=== PATIENT | male | born 1950 | race Hispanic/Latino ===

== ENCOUNTER → 2019-10-20 | Outpatient (CLI) | payer OTHER ==
[~2019-10-20] VITALS: Ht 162.6 cm; Wt 70.9 kg
[~2019-10-20] MED LIST: ATOR-2 PO; CARB15DR OP; CLOP75TA14 PO; FOLI1TAB61 PO; LISI40TA4 PO; METO25TA6 PO; NITR0.4T50 SL; ROPI1TAB13 PO; SEVE800T7 PO
[2019-10-20 09:55] VITALS: BP 168/69
[2019-10-20 10:03] LABS: BASOPHILS % (AUTO) 0.6 % (0.0-5.0); EOSINOPHILS % (AUTO) 5.5 % (0.0-8.0); HEMATOCRIT 32.6 % (42-54); LYMPHOCYTES % (AUTO) 22.4 % (21.0-51.0); MEAN CORPUSCULAR HEMOGLOBIN 29.1 pg (27.0-33.0); MEAN CORPUSCULAR HGB CONC 32.2 g/dL (32.0-36.0); MEAN CORPUSCULAR VOLUME 90.3 fL (79-99); MONOCYTES % (AUTO) 7.2 % (3.0-13.0); PLATELET COUNT (AUTO) 189 K/uL (130-400); RED BLOOD CELL COUNT(AUTO) 3.61 MIL/uL (4.50-6.20); RED CELL DISTRIBUTION WIDTH 13.2 % (11.0-15.5); WHITE BLOOD COUNT (AUTO) 8.7 K/uL (4.8-10.8)
[2019-10-20 10:06] LABS: APPEARANCE,URINE Clear (CLEAR); BILIRUBIN,URINE Negative (NEGATIVE); COLOR,URINE Yellow (YELLOW); GLUCOSE, URINE (UA) TRACE mg/dL (NEGATIVE); KETONES,URINE Negative (NEGATIVE); LEUKOCYTE ESTERASE ,URINE Negative (NEGATIVE); NITRATE,URINE Negative (NEGATIVE); OCCULT BLOOD,URINE Small (NEGATIVE); PH,URINE 7.5 (5.0-8.0); PROTEIN,URINE 300 mg/dL (NEGATIVE); UROBILINOGEN,URINE 0.2 mg/dL (0.2-1.0)
[2019-10-20 10:09] LABS: BACTERIA,URINE Rare /HPF (None Seen); RBC,URINE 0-1 /HPF (0-1); SQUAMOUS EPITHELIAL CELL,UR Rare /HPF (0-2); WBC,URINE 0-1 /HPF (0-1)
[2019-10-20 10:16] LABS: INR 0.99 (0.85-1.15); PARTIAL THROMBOPLASTIN TIME 28.7 SEC (26.3-35.5); PROTHROMBIN TIME 10.7 SEC (9.6-11.6)
[2019-10-20 10:36] LABS: POTASSIUM 6.4 mmol/L (3.5-5.1)
[2019-10-20 10:37] LABS: CREATININE 9.4 mg/dL (0.5-1.5)
--- NOTE | 2019-10-24 08:30 | NUR ---
lab abnormals called dr carr office and spoke to daniele. gwen gee was informed of abnormals labs cbc and bmp pt had dialysis done on the . pt was cancelled as per gwen gee.
== END | disposition home or self-care (01) ==
LOC: DAH 10:00 → EDSTATUS 10-25 09:00
PROVIDERS: ATTEND Internal Medicine Cardiovascular Disease
DX: Z01.818 Encounter for other preprocedural examination (principal); I73.9 Peripheral vascular disease, unspecified; Z79.899 Other long term (current) drug therapy; Z87.891 Personal history of nicotine dependence
CPT/HCPCS: 36415; 71045; 80048; 81001; 85025; 85610; 85730; 93005

== ENCOUNTER 2020-04-12 07:36 | Day surgery (SDC) | payer OTHER ==
[2020-04-10 09:22] LABS: BASOPHILS % (AUTO) 0.8 % (0.0-5.0); HEMATOCRIT 34.5 % (42-54); LYMPHOCYTES % (AUTO) 25.1 % (21.0-51.0); MEAN CORPUSCULAR HEMOGLOBIN 29.9 pg (27.0-33.0); MEAN CORPUSCULAR HGB CONC 31.9 g/dL (32.0-36.0); MEAN CORPUSCULAR VOLUME 93.8 fL (79-99); MONOCYTES % (AUTO) 6.9 % (3.0-13.0); NEUTROPHILS % (AUTO) 59.9 % (40.0-77.0); PLATELET COUNT (AUTO) 179 K/uL (130-400); RED BLOOD CELL COUNT(AUTO) 3.68 MIL/uL (4.50-6.20); RED CELL DISTRIBUTION WIDTH 14.5 % (11.0-15.5); WHITE BLOOD COUNT (AUTO) 6.3 K/uL (4.8-10.8)
[2020-04-10 09:25] LABS: APPEARANCE,URINE Clear (CLEAR); BILIRUBIN,URINE Negative (NEGATIVE); COLOR,URINE Yellow (YELLOW); GLUCOSE, URINE (UA) TRACE mg/dL (NEGATIVE); KETONES,URINE Negative (NEGATIVE); LEUKOCYTE ESTERASE ,URINE Negative (NEGATIVE); NITRATE,URINE Negative (NEGATIVE); OCCULT BLOOD,URINE Negative (NEGATIVE); PROTEIN,URINE 300 mg/dL (NEGATIVE); UROBILINOGEN,URINE 0.2 mg/dL (0.2-1.0)
[2020-04-10 09:36] LABS: BACTERIA,URINE Rare /HPF (None Seen); RBC,URINE 0-1 /HPF (0-1); SQUAMOUS EPITHELIAL CELL,UR Rare /HPF (0-2); WBC,URINE 0-1 /HPF (0-1)
[2020-04-10 09:44] LABS: INR 1.04 (0.85-1.15); PARTIAL THROMBOPLASTIN TIME 29.8 SEC (26.3-35.5); PROTHROMBIN TIME 11.2 SEC (9.6-11.6)
[2020-04-10 09:56] LABS: CREATININE 6.1 mg/dL (0.5-1.5); POTASSIUM 5.2 mmol/L (3.5-5.1)
--- NOTE | 2020-04-11 15:23 | NUR ---
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
[2020-04-12] VITALS (12 sets, daily range): BP systolic 16–179; BP diastolic 60–76
[~2020-04-12] VITALS: Ht 162.6 cm; Wt 70.0 kg
[~2020-04-12 07:36] MED LIST changes: -CARB15DR OP; +SODIUM CHLORIDE 0.9% 500ML 500 ML IV SCH
[2020-04-12] MEDS ORDERED: SODIUM CHLORIDE 0.9% 1000ML 1,000 ML IV ONE (08:28)
[2020-04-12 08:53] LABS: CREATININE 5.1 mg/dL (0.5-1.5); POTASSIUM 4.7 mmol/L (3.5-5.1)
[2020-04-12] MEDS ORDERED: NITROGLYCERIN 2 MG/VIAL VIAL IV ONE (10:41)
[2020-04-12] MEDS ORDERED: HEPARIN SODIUM 1000UNIT/ML 10ML VIAL ONE (10:41)
[2020-04-12] MEDS ORDERED: SODIUM BICARB 50MEQ 50ML VIAL ONE (10:41)
[2020-04-12] MEDS ORDERED: IODIXANOL 320 MG/ML 100 ML VIAL ONE ×2 (10:42→12:04)
[2020-04-12] MEDS ORDERED: FENTANYL CITRATE PF 50 MCG/1 ML 2ML VIAL ONE (10:42)
[2020-04-12] MEDS ORDERED: LIDOCAINE HCL 2% 20ML ONE (10:42)
[2020-04-12] MEDS ORDERED: MIDAZOLAM HCL 1 MG/ML 2ML VIAL ONE (10:42)
--- NOTE | 2020-04-12 18:14 | NUR ---
PT AAOX3, NO ACTIVE BLEEDING OR HEMATOMA TO LT GROIN. DRESSING IS D/I. PT STABLE NO DISTRESS OR C/O PAIN TO LT GROIN. PT INSTRUCTIONS GIVEN TO , VERBALIZED UNDERSTANDING. STATES SON WILL BE PICKING UP PT. PERSONAL BELONGINGS WITH PT.PT DRESSED WITH ASSISTANCE. TAKEN OUT TO CAR VIA WHEELCHAIR, DRIVEN HOME BY SON.
== END 2020-04-12 18:17 | disposition home or self-care (01) ==
LOC: DAH 07:36
PROVIDERS: ATTEND Internal Medicine Cardiovascular Disease
DX: E11.51 Type 2 diabetes mellitus with diabetic peripheral angiopathy without gangrene (principal); I70.203 Unspecified atherosclerosis of native arteries of extremities, bilateral legs; E78.5 Hyperlipidemia, unspecified; E11.9 Type 2 diabetes mellitus without complications; I12.0 Hypertensive chronic kidney disease with stage 5 chronic kidney disease or end stage renal disease; E11.22 Type 2 diabetes mellitus with diabetic chronic kidney disease; N18.6 End stage renal disease; Z79.899 Other long term (current) drug therapy; Z79.01 Long term (current) use of anticoagulants
CPT/HCPCS: 36246; 36415 ×2; 71045; 75630; 80048 ×2; 81001; 82948 ×2; 85025; 85610; 85730; 93005; A4215; A4216; A4221; A4222; A4223 ×3; A4606; A4663; C1760; C1769; C1894 ×2; J1644 ×2; J2250; J3010; J3490 ×3; J7030; Q9967 ×2; 36247; 99156; 99157

== ENCOUNTER → 2021-01-31 | Outpatient (CLI) | payer OTHER ==
[~2021-01-31] MED LIST changes: +IOHEXOL 350 MG/ML 100ML INFUS..BTL IV ONE; +IOHEXOL-350 50ML VIAL IV ONE; -LISI40TA4 PO; +LISI40TA9 PO; -SODIUM CHLORIDE 0.9% 500ML 500 ML IV SCH
== END | disposition home or self-care (01) ==
LOC: RAH 09:07
PROVIDERS: ATTEND Internal Medicine Cardiovascular Disease
DX: N28.1 Cyst of kidney, acquired (principal); N26.1 Atrophy of kidney (terminal); N28.89 Other specified disorders of kidney and ureter; K76.0 Fatty (change of) liver, not elsewhere classified; K57.90 Diverticulosis of intestine, part unspecified, without perforation or abscess without bleeding; I70.291 Other atherosclerosis of native arteries of extremities, right leg; I70.292 Other atherosclerosis of native arteries of extremities, left leg
CPT/HCPCS: 75635; Q9967 ×2

== ENCOUNTER 2021-11-28 16:34 | Inpatient (IN) | payer OTHER ==
[~2021-11-28] VITALS: Ht 160 cm; Wt 78.7 kg
[~2021-11-28 16:34] MED LIST changes: -IOHEXOL 350 MG/ML 100ML INFUS..BTL IV ONE; -IOHEXOL-350 50ML VIAL IV ONE
[2021-11-28 17:06] LABS: BASOPHILS % (AUTO) 0.6 % (0.0-5.0); EOSINOPHILS % (AUTO) 4.6 % (0.0-8.0); HEMATOCRIT 39.9 % (42-54); LYMPHOCYTES % (AUTO) 23.4 % (21.0-51.0); MEAN CORPUSCULAR HEMOGLOBIN 28.9 pg (27.0-33.0); MEAN CORPUSCULAR HGB CONC 31.8 g/dL (32.0-36.0); MEAN CORPUSCULAR VOLUME 90.9 fL (79-99); MONOCYTES % (AUTO) 9.9 % (3.0-13.0); NEUTROPHILS % (AUTO) 61.1 % (40.0-77.0); PLATELET COUNT (AUTO) 177 K/uL (130-400); RED BLOOD CELL COUNT(AUTO) 4.39 MIL/uL (4.50-6.20); RED CELL DISTRIBUTION WIDTH 14.8 % (11.0-15.5); WHITE BLOOD COUNT (AUTO) 7.2 K/uL (4.8-10.8)
[2021-11-28 17:17] LABS: CREATININE 6.8 mg/dL (0.5-1.5); POTASSIUM 5.2 mmol/L (3.5-5.1)
[2021-11-28 17:20] LABS: INR 1.12 (0.85-1.15); PROTHROMBIN TIME 12.1 SEC (9.6-11.6)
[2021-11-28 17:22] LABS: ALBUMIN 3.8 g/dL (3.5-5.0); BILIRUBIN,TOTAL 0.4 mg/dL (0.2-1.0); TOTAL PROTEIN, SERUM 8.1 g/dL (6.0-8.3)
[2021-11-28] MEDS ORDERED: IOHEXOL 350 MG/ML 100ML INFUS..BTL IV ONE ×2 (18:20→18:42)
[2021-11-28] MEDS ORDERED: IOHEXOL-350 50ML VIAL IV ONE ×2 (18:38→18:42)
[2021-11-28] MEDS ORDERED: ONDANSETRON 4MG INJ IV PRN (22:30)
[2021-11-28] MEDS ORDERED: ACETAMINOPHEN 325 MG TAB PO PRN ×2 (22:30)
[2021-11-28] MEDS ORDERED: MORPHINE 2 MG SYG IV PRN (22:30)
[2021-11-28 23:03] LABS: INR 1.08 (0.85-1.15); PROTHROMBIN TIME 11.7 SEC (9.6-11.6)
[2021-11-28] MEDS ORDERED: CLOP75TA32 PO (23:08)
[2021-11-28] MEDS ORDERED: LOSA100T58 PO (23:08)
[2021-11-28] MEDS ORDERED: ATOR-2 PO (23:08)
[2021-11-28] MEDS ORDERED: CARV12.511 PO (23:08)
[2021-11-28] MEDS ORDERED: FOLI1TAB61 PO (23:08)
[2021-11-28] MEDS ORDERED: DOCU100T PO (23:08)
[2021-11-28] MEDS ORDERED: HYDR-4153 PO (23:08)
[2021-11-28] MEDS ORDERED: ROPI1TAB13 PO (23:08)
[2021-11-28] MEDS ORDERED: [UNRECOGNIZED DRUG - OTHER] PO (23:08)
[2021-11-28] MEDS ORDERED: AMLO2.5T4 PO (23:08)
[2021-11-29] VITALS (20 sets, daily range): BP systolic 96–197; BP diastolic 61–100
[2021-11-29] MEDS ORDERED: LABETALOL 20MG SYG IV ONE (00:40)
[2021-11-29] MEDS: LABETALOL 20MG VIAL IV PRN ×2 (00:48→05:44)
[2021-11-29 05:20] LABS: BASOPHILS % (AUTO) 0.7 % (0.0-5.0); EOSINOPHILS % (AUTO) 4.2 % (0.0-8.0); HEMATOCRIT 38.5 % (42-54); LYMPHOCYTES % (AUTO) 19.1 % (21.0-51.0); MEAN CORPUSCULAR HEMOGLOBIN 29.4 pg (27.0-33.0); MEAN CORPUSCULAR HGB CONC 32.5 g/dL (32.0-36.0); MEAN CORPUSCULAR VOLUME 90.6 fL (79-99); MONOCYTES % (AUTO) 8.3 % (3.0-13.0); NEUTROPHILS % (AUTO) 67.5 % (40.0-77.0); PLATELET COUNT (AUTO) 187 K/uL (130-400); RED BLOOD CELL COUNT(AUTO) 4.25 MIL/uL (4.50-6.20); WHITE BLOOD COUNT (AUTO) 8.7 K/uL (4.8-10.8)
[2021-11-29 05:36] LABS: ALBUMIN 3.5 g/dL (3.5-5.0); BILIRUBIN,TOTAL 0.4 mg/dL (0.2-1.0); CREATININE 7.4 mg/dL (0.5-1.5); POTASSIUM 5.4 mmol/L (3.5-5.1); TOTAL PROTEIN, SERUM 7.5 g/dL (6.0-8.3)
[2021-11-29 06:43] LABS: ERYTHROCYTE SEDIMENTATION RATE 35 MM/HR (0-20)
[2021-11-29] MEDS ORDERED: FAMOTIDINE 20MG VIAL IV SCH (09:00)
[2021-11-29] MEDS ORDERED: METOPROLOL TARTRATE 25 MG TAB PO SCH (09:00)
[2021-11-29] MEDS ORDERED: HYDRALAZINE 25MG TABLET PO SCH (14:00)
[2021-11-29] MEDS ORDERED: ATORVASTATIN 40 MG TABLET PO SCH (21:00)
[2021-11-29] MEDS ORDERED: AMLODIPINE 2.5 MG TAB PO SCH (21:00)
[2021-11-30 02:05] LABS: HEPATITIS B SURFACE ANTIGEN Non-Reactive (Negative)
[2021-11-30] MEDS ORDERED: LOSARTAN 100 MG TABLET PO SCH (09:00)
[2021-11-30] MEDS ORDERED: Vitamin B Complex/Vit C/Folic Acid PO SCH (09:00)
== END 2021-11-29 20:30 | disposition home or self-care (01) | DRG 299 ==
LOC: EDH 16:34 → EDHIP 22:16 → 3DH 11-29 03:53
PROVIDERS: ADMIT Hospitalist; ATTEND Hospitalist
PROC: 5A1D70Z Performance of Urinary Filtration, Intermittent, Less than 6 Hours Per Day (ICD-10-PCS; principal; 2021-11-29)
DX: E11.51 Type 2 diabetes mellitus with diabetic peripheral angiopathy without gangrene (principal); N18.6 End stage renal disease; I12.0 Hypertensive chronic kidney disease with stage 5 chronic kidney disease or end stage renal disease; L97.419 Non-pressure chronic ulcer of right heel and midfoot with unspecified severity; I70.218 Atherosclerosis of native arteries of extremities with intermittent claudication, other extremity; E78.00 Pure hypercholesterolemia, unspecified; E11.22 Type 2 diabetes mellitus with diabetic chronic kidney disease; Z99.2 Dependence on renal dialysis; I25.10 Atherosclerotic heart disease of native coronary artery without angina pectoris; E87.5 Hyperkalemia; E11.621 Type 2 diabetes mellitus with foot ulcer
CPT/HCPCS: 36415; 75635; 80053; 82948; 85025; 85610; 85651; 85730; 86704; 86706; 87340; 90935; G0378; J3490; Q9967

== ENCOUNTER 2022-01-21 09:02 | Inpatient (IN) | payer OTHER ==
[2022-01-20 17:33] VITALS: BP 168/65
[2022-01-20 17:39] LABS: BASOPHILS % (AUTO) 0.5 % (0.0-5.0); EOSINOPHILS % (AUTO) 2.2 % (0.0-8.0); HEMATOCRIT 40.1 % (42-54); LYMPHOCYTES % (AUTO) 13.9 % (21.0-51.0); MEAN CORPUSCULAR HEMOGLOBIN 29.8 pg (27.0-33.0); MEAN CORPUSCULAR HGB CONC 33.2 g/dL (32.0-36.0); MEAN CORPUSCULAR VOLUME 89.7 fL (79-99); MONOCYTES % (AUTO) 7.9 % (3.0-13.0); NEUTROPHILS % (AUTO) 75.2 % (40.0-77.0); PLATELET COUNT (AUTO) 183 K/uL (130-400); RED BLOOD CELL COUNT(AUTO) 4.47 MIL/uL (4.50-6.20); RED CELL DISTRIBUTION WIDTH 13.8 % (11.0-15.5); WHITE BLOOD COUNT (AUTO) 7.8 K/uL (4.8-10.8)
[2022-01-20 17:40] LABS: APPEARANCE,URINE CLEAR (CLEAR); BILIRUBIN,URINE NEGATIVE (NEGATIVE); COLOR,URINE YELLOW (YELLOW); GLUCOSE, URINE (UA) 250 mg/dL (NEGATIVE); KETONES,URINE NEGATIVE (NEGATIVE); LEUKOCYTE ESTERASE ,URINE NEGATIVE (NEGATIVE); NITRATE,URINE NEGATIVE (NEGATIVE); OCCULT BLOOD,URINE MODERATE (NEGATIVE); PROTEIN,URINE >=300 mg/dL (NEGATIVE); UROBILINOGEN,URINE 0.2 mg/dL (0.2-1.0)
[2022-01-20 17:46] LABS: CREATININE 5.4 mg/dL (0.5-1.5); POTASSIUM 5.1 mmol/L (3.5-5.1)
[2022-01-20 17:49] LABS: INR 0.99 (0.85-1.15); PROTHROMBIN TIME 10.8 SEC (9.6-11.6)
[2022-01-20 17:50] LABS: PARTIAL THROMBOPLASTIN TIME 29.6 SEC (26.3-35.5)
[2022-01-20 18:00] LABS: RBC,URINE 0-1 /HPF (0-1); WBC,URINE 0-1 /HPF (0-1)
[2022-01-20 18:01] LABS: BACTERIA,URINE Few /HPF (None Seen); SQUAMOUS EPITHELIAL CELL,UR Rare /HPF (0-2)
[2022-01-21] VITALS (22 sets, daily range): BP systolic 134–170; BP diastolic 66–86
[~2022-01-21] VITALS: Ht 162.6 cm; Wt 75.7 kg
[~2022-01-21 09:02] MED LIST changes: +AMLO2.5T4 PO; +CARV12.511 PO; -CLOP75TA14 PO; +CLOP75TA32 PO; +DOCU100T PO; +HYDR-4153 PO; -LISI40TA9 PO; +LOSA100T58 PO; -METO25TA6 PO; -SEVE800T7 PO; +[UNRECOGNIZED DRUG - OTHER] PO
[2022-01-21] MEDS ORDERED: 0.9%NACL 1000ML 1,000 ML IV ONE (09:21)
[2022-01-21] MEDS ORDERED: CEFAZOLIN SODIUM 1 GM VIAL ONE (12:41)
[2022-01-21] MEDS ORDERED: GLYCOPYRROLATE 1 MG/5 ML SYRINGE ONE (15:57)
[2022-01-21] MEDS ORDERED: SUCCINYLCHOLINE CHLORIDE 20 MG/ML 10 ML VIAL ONE (15:57)
[2022-01-21] MEDS ORDERED: MIDAZOLAM HCL 1 MG/ML 2ML VIAL ONE (15:57)
[2022-01-21] MEDS ORDERED: PROPOFOL 10 MG/ML 20ML VIAL IV ONE (15:57)
[2022-01-21] MEDS ORDERED: ONDANSETRON 4MG INJ ONE (15:57)
[2022-01-21] MEDS ORDERED: ROCURONIUM 10MG/1ML SYR 10 MG/ML ML ONE (15:57)
[2022-01-21] MEDS ORDERED: FENTANYL CITRATE PF 50 MCG/1 ML 2ML VIAL ONE (15:58)
[2022-01-21] MEDS ORDERED: KETAMINE 50MG/ML SYRINGE 50 MG/ML DISP.SYRIN IV ONE (16:13)
[2022-01-21] MEDS ORDERED: NOREPINEPHRINE BITARTRATE 1 MG/1 ML ML IV ONE ×2 (16:13→17:22)
[2022-01-21] MEDS ORDERED: PHENYLEPHRINE HCL 10 MG/ML 1ML VIAL IV ONE (17:22)
[2022-01-21] MEDS ORDERED: HEPARIN 10,000 UNIT/10ML (1,000 UNIT/ML) VIAL ONE (17:22)
[2022-01-21] MEDS ORDERED: MEPERIDINE-PF 25 MG/ML SYG ONE (19:25)
[2022-01-21] MEDS ORDERED: TRAMADOL HCL 50 MG TABLET PO PRN ×2 (20:00)
[2022-01-21] MEDS ORDERED: ONDANSETRON 4MG INJ IVP PRN (20:00)
[2022-01-21] MEDS: PHARMACY COMMUNICATION MISC SCH ×4 (20:30→23:30)
[2022-01-21] MEDS ORDERED: NON-FORMULARY MEDICATION 1 EACH (Docusate Sodium 100 MG) PO SCH (21:00)
[2022-01-21] MEDS: [UNRECOGNIZED DRUG - OTHER] PO SCH (21:00)
[2022-01-21] MEDS ORDERED: NON-FORMULARY MEDICATION 1 EACH (Atorvastatin Calcium 80 MG) PO SCH (21:00)
[2022-01-21] MEDS: ROPINIROLE HCL 1 MG TABLET PO SCH (21:42)
[2022-01-21] MEDS: HYDRALAZINE 25MG TABLET PO SCH (21:43)
[2022-01-21] MEDS: DOCUSATE SODIUM 100 MG CAP PO SCH (21:43)
[2022-01-21] MEDS: ATORVASTATIN 40 MG TABLET PO SCH (21:43)
[2022-01-21] MEDS: CARVEDILOL 12.5 MG TABLET PO SCH (21:44)
[2022-01-21] MEDS: AMLODIPINE 2.5 MG TAB PO SCH (21:46)
[2022-01-22] VITALS (21 sets, daily range): BP systolic 89–145; BP diastolic 54–88
[2022-01-22] MEDS ORDERED: CEFAZOLIN SODIUM 1 GM VIAL IVP SCH (01:00)
[2022-01-22] MEDS: CEFAZOLIN SODIUM 1 GM VIAL IVP SCH ×2 (01:00→09:00)
[2022-01-22] MEDS: INSULIN HUMULIN R 100 UNIT/ML 3ML SQ SCH ×4 (07:43→23:13)
[2022-01-22] MEDS: HYDRALAZINE 25MG TABLET PO SCH ×3 (09:00→21:00)
[2022-01-22] MEDS: AMLODIPINE 2.5 MG TAB PO SCH ×2 (09:00→21:21)
[2022-01-22] MEDS: LOSARTAN 100 MG TABLET PO SCH (09:00)
[2022-01-22] MEDS: CARVEDILOL 12.5 MG TABLET PO SCH ×2 (09:00→21:21)
[2022-01-22] MEDS ORDERED: NON-FORMULARY MEDICATION 1 EACH (Vit B Cmplx 3/FA/Vit C/Biotin (Nephro-Vite Rx Tablet) 1 E PO SCH (09:00)
[2022-01-22] MEDS: DOCUSATE SODIUM 100 MG CAP PO SCH ×2 (09:37→21:20)
[2022-01-22] MEDS: Vitamin B Complex/Vit C/Folic Acid PO SCH (09:37)
[2022-01-22] MEDS: ROPINIROLE HCL 1 MG TABLET PO SCH ×2 (09:38→21:20)
[2022-01-22] MEDS: CLOPIDOGREL 75MG TAB PO SCH (09:38)
[2022-01-22] MEDS: [UNRECOGNIZED DRUG - OTHER] PO SCH ×3 (09:49→21:23)
[2022-01-22 10:07] LABS: HEMATOCRIT 33.8 % (42-54); MEAN CORPUSCULAR HEMOGLOBIN 29.7 pg (27.0-33.0); MEAN CORPUSCULAR HGB CONC 32.8 g/dL (32.0-36.0); MEAN CORPUSCULAR VOLUME 90.4 fL (79-99); RED BLOOD CELL COUNT(AUTO) 3.74 MIL/uL (4.50-6.20); RED CELL DISTRIBUTION WIDTH 14.1 % (11.0-15.5)
[2022-01-22 10:46] LABS: ALBUMIN 3.4 g/dL (3.5-5.0); BILIRUBIN,TOTAL 0.2 mg/dL (0.2-1.0); MAGNESIUM 2.3 mg/dL (1.80-2.40); PHOSPHORUS 8.1 mg/dL (2.5-4.9); TOTAL PROTEIN, SERUM 7.5 g/dL (6.0-8.3)
[2022-01-22 10:50] LABS: POTASSIUM 6.6 mmol/L (3.5-5.1)
[2022-01-22] MEDS: SEVELAMER HCL 800 MG TABLET PO SCH ×2 (11:50→16:18)
[2022-01-22] MEDS: ATORVASTATIN 40 MG TABLET PO SCH (21:21)
[2022-01-22] MEDS: ACETAMINOPHEN 325 MG TAB PO PRN (23:18)
[2022-01-23] VITALS (7 sets, daily range): BP systolic 112–156; BP diastolic 57–68
[2022-01-23] MEDS: INSULIN HUMULIN R 100 UNIT/ML 3ML SQ SCH ×4 (05:58→20:49)
[2022-01-23] MEDS: LOSARTAN 100 MG TABLET PO SCH (10:09)
[2022-01-23] MEDS: ROPINIROLE HCL 1 MG TABLET PO SCH ×2 (10:09→20:42)
[2022-01-23] MEDS: SEVELAMER HCL 800 MG TABLET PO SCH ×3 (10:09→18:00)
[2022-01-23] MEDS: AMLODIPINE 2.5 MG TAB PO SCH ×2 (10:09→20:43)
[2022-01-23] MEDS: DOCUSATE SODIUM 100 MG CAP PO SCH ×2 (10:09→20:42)
[2022-01-23] MEDS: Vitamin B Complex/Vit C/Folic Acid PO SCH (10:09)
[2022-01-23] MEDS: HYDRALAZINE 25MG TABLET PO SCH ×3 (10:10→20:42)
[2022-01-23] MEDS: CLOPIDOGREL 75MG TAB PO SCH (10:10)
[2022-01-23] MEDS: CARVEDILOL 12.5 MG TABLET PO SCH ×2 (10:11→20:42)
[2022-01-23] MEDS: [UNRECOGNIZED DRUG - OTHER] PO SCH ×3 (10:17→21:00)
[2022-01-23] MEDS: ACETAMINOPHEN 325 MG TAB PO PRN (10:20)
[2022-01-23] MEDS: ATORVASTATIN 40 MG TABLET PO SCH (20:42)
[2022-01-24] VITALS (21 sets, daily range): BP systolic 94–170; BP diastolic 63–79
[2022-01-24] MEDS: INSULIN HUMULIN R 100 UNIT/ML 3ML SQ SCH ×4 (06:52→21:00)
[2022-01-24] MEDS: Vitamin B Complex/Vit C/Folic Acid PO SCH (09:16)
[2022-01-24] MEDS: SEVELAMER HCL 800 MG TABLET PO SCH ×3 (09:16→16:41)
[2022-01-24] MEDS: ROPINIROLE HCL 1 MG TABLET PO SCH ×2 (09:17→21:00)
[2022-01-24] MEDS: LOSARTAN 100 MG TABLET PO SCH (09:17)
[2022-01-24] MEDS: CLOPIDOGREL 75MG TAB PO SCH (09:18)
[2022-01-24] MEDS: DOCUSATE SODIUM 100 MG CAP PO SCH ×2 (09:18→21:00)
[2022-01-24] MEDS: [UNRECOGNIZED DRUG - OTHER] PO SCH ×3 (09:20→21:00)
[2022-01-24] MEDS: HYDRALAZINE 25MG TABLET PO SCH ×3 (09:24→22:00)
[2022-01-24] MEDS: AMLODIPINE 2.5 MG TAB PO SCH ×2 (09:24→21:00)
[2022-01-24] MEDS: CARVEDILOL 12.5 MG TABLET PO SCH ×2 (09:25→21:00)
[2022-01-24] MEDS: ATORVASTATIN 40 MG TABLET PO SCH (21:00)
== END 2022-01-24 23:27 | disposition home or self-care (01) | DRG 270 ==
LOC: DAHIP 09:02 → 2DH 20:57
PROVIDERS: ADMIT Thoracic Surgery (Cardiothoracic Vascular Surgery); ATTEND Thoracic Surgery (Cardiothoracic Vascular Surgery)
PROC: 03HY32Z Insertion of Monitoring Device into Upper Artery, Percutaneous Approach (ICD-10-PCS; 2022-01-21)
PROC: 4A133B1 Monitoring of Arterial Pressure, Peripheral, Percutaneous Approach (ICD-10-PCS; 2022-01-21)
PROC: 4A133J1 Monitoring of Arterial Pulse, Peripheral, Percutaneous Approach (ICD-10-PCS; 2022-01-21)
PROC: 041 Lower Arteries, Bypass (ICD-10-PCS; principal; 2022-01-21 12:00)
PROC: 5A1D70Z Performance of Urinary Filtration, Intermittent, Less than 6 Hours Per Day (ICD-10-PCS; 2022-01-24)
DX: E11.51 Type 2 diabetes mellitus with diabetic peripheral angiopathy without gangrene (principal); N18.6 End stage renal disease; I12.0 Hypertensive chronic kidney disease with stage 5 chronic kidney disease or end stage renal disease; E11.22 Type 2 diabetes mellitus with diabetic chronic kidney disease; Z99.2 Dependence on renal dialysis; Z20.822 Contact with and (suspected) exposure to COVID-19; Z79.899 Other long term (current) drug therapy; Z79.82 Long term (current) use of aspirin; E78.00 Pure hypercholesterolemia, unspecified; E87.70 Fluid overload, unspecified
CPT/HCPCS: 36415; 71045; 80048; 80053; 81001; 82948; 83735; 84100; 84132; 85025; 85027; 85610; 85730; 86850; 86900; 86901; 87635; 90935; 97039; A4344; G0378; J0330; J0690; J1644; J1815; J2175; J2250; J2370; J2405; J2704; J3010; J3490; J7030